=== PATIENT | male | born 1965 | race Caucasian/White ===

== ENCOUNTER 2019-07-24 10:35 | Inpatient (IN) | payer MEDICAID ==
[2019-07-24] MEDS ORDERED: Acetaminophen 325 MG Tab PO PRN (15:13)
[2019-07-24] MEDS ORDERED: Albuterol 6.7 GM Inhaler INH PRN (15:16)
--- NOTE | 2019-07-24 15:31 | PCM.HP ---
H&P History of Present Illness - General Date of Service: 07/24/19 Admit Problem/Dx: Admission Diagnosis/Problem Admission Diagnosis/Problem Weakness - History of Present Illness Initial Comments - Free Text/Narative: Judd Kim, 53 y.o. male with medical history significant for hypertension, COPD, atrial fibrillation, alcohol use disorder, and history of tobacco use who was admitted for acute COPD exacerbation and was found to have acute systolic heart failure. Covid-19 was ruled out. He was started CIWA protocol for alcohol withdrawl. his ECHO showed EF 25 to 30%. Patient was also in A. fib with RVR. He was started on amiodarone. Patient was also started on Eliquis. Cardiology was consulted. Patient underwent coronary angiogram. There was no significant coronary artery disease. patient was started on HF regimen ( metoprolol, lisinopril and lasix). patient was deconditioned therefore he was transferred to swing bed for further care. on interview, he reported dyspnea on exertion. no other complaints. Neck Pain Score (Numeric/FACES): 3 - Related Data Allergies/Adverse Reactions: Allergies Allergy/AdvReac Type Severity Reaction Status Date / Time cat dander Allergy Cough Verified 07/24/19 13:23 mold Allergy Sneezing Verified 07/24/19 13:24 Home Medications: Home Meds ALPRAZolam [Xanax] 0.25 mg PO TID PRN 07/24/19 [History] Albuterol [Ventolin HFA] 2 puff INH Q4H PRN 07/24/19 [History] Amiodarone [Cordarone] 200 mg PO BID 07/24/19 [History] Apixaban [Eliquis] 5 mg PO BID 07/24/19 [History] Cyclobenzaprine [Flexeril] 10 mg PO BEDTIME PRN 07/24/19 [History] Fluticasone/Salmeterol [Advair 500-50] 1 puff INH BID 07/24/19 [History] Folic Acid 1 mg PO DAILY 07/24/19 [History] Furosemide [Lasix] 20 mg PO DAILY 07/24/19 [History] Ibuprofen 600 mg PO Q8H PRN 07/24/19 [History] Ipratropium/Albuterol Sulfate [Iprat-Albut 0.5-3(2.5) MG/3 ML] 3 ml IH Q4HRRT PRN 07/24/19 [History] Metoprolol Succinate [Toprol Xl] 100 mg PO DAILY 07/24/19 [History] Multivit,Stress Formula/Zinc [Stress B with Zinc Tablet] 1 each PO DAILY [History] Nicotine [Habitrol] 14 mg TOP DAILY 07/24/19 [History] Potassium Chloride 40 meq PO DAILY 07/24/19 [History] Thiamine [Vitamin B-1] 100 mg PO DAILY 07/24/19 [History] Triamcinolone Acetonide [Triamcinolone Acetonide 0.1% Crm] 1 applic TOP BID PRN MDD up to one week when needed 07/24/19 [History] Past Medical History Cardiovascular History: Reports: Afib, CAD, Cardiomyopathy, Heart Failure, Hypertension Respiratory History: Reports: COPD Musculoskeletal History: Reports: Arthritis, Back Pain, Chronic, Neck Pain, Chronic Other Musculoskeletal History: Fractured two vertabrae, bulging disks Neurological History: Reports: Concussion, TIA Psychiatric History: Reports: Anxiety, Panic Attack Dermatologic History: Reports: Other (See Below) Other Dermatologic History: dry skin - Infectious Disease History Infectious Disease History: Reports: Chicken Pox, Influenza - Past Surgical History Cardiovascular Surgical History: Reports: None Respiratory Surgical History: Reports: None GI Surgical History: Reports: Cholecystectomy Social & Family History - Family History Family Medical History: Noncontributory - Tobacco Use Smoking Status *Q: Current Every Day Smoker Years of Tobacco use: 40 Packs/Tins Daily: 0.5 Second Hand Smoke Exposure: Yes - Caffeine Use Caffeine Use: Reports: Coffee, Soda - Alcohol Use Days Per Week of Alcohol Use: 7 Number of Drinks Per Day: 15 Total Drinks Per Week: 105 Date of Last Drink: 07/09/19 - Recreational Drug Use Recreational Drug Use: No H&P Review of Systems - Review of Systems: Review Of Systems: Comprehensive ROS is negative, except as noted in HPI. Exam - Exam Exam: See Below - Vital Signs Vital Signs: Last Vital Signs Temp 36.7 C 07/24/19 13:30 Pulse 98 07/24/19 13:30 Resp 20 07/24/19 13:30 BP 90/61 07/24/19 13:30 Pulse Ox 97 07/24/19 13:30 Weight: 71.758 kg - Exam General: Alert, Oriented HEENT: Conjunctiva Clear, Other Lungs: Clear to Auscultation, Normal Respiratory Effort Cardiovascular: Regular Rate, Regular Rhythm GI/Abdominal Exam: Normal Bowel Sounds, Soft, Non-Tender, No Distention Extremities: Normal Inspection, No Pedal Edema Skin: Warm, Dry, Intact Psychiatric: Alert, Normal Affect, Normal Mood Problem List Initiated/Reviewed/Updated: Yes Orders Last 24hrs: Active Orders 24 hr Category Date Time Status Patient Status [ADT] Routine ADT 07/24/19 15:13 Ordered Oxygen Therapy [RC] PRN Care 07/24/19 15:13 Ordered Up With Assistance [RC] ASDIRECTED Care 07/24/19 15:13 Ordered VTE/DVT Education [RC] PER UNIT ROUTINE Care 07/24/19 15:13 Ordered Vital Signs [RC] QSHIFT Care 07/24/19 15:13 Ordered OT Evaluation and Treatment [CONS] Routine Cons 07/24/19 15:13 Ordered PT Evaluation and Treatment [CONS] Routine Cons 07/24/19 15:13 Ordered 2 Gram Sodium Diet [DIET] Diet 07/24/19 Dinner Ordered BASIC METABOLIC PANEL,BMP [CHEM] AM Lab 07/25/19 05:11 Ordered CBC WITH AUTO DIFF [HEME] AM Lab 07/25/19 05:11 Ordered ALPRAZolam [Xanax] Med 07/24/19 15:16 Ordered 0.25 mg PO TID PRN Acetaminophen [Tylenol] Med 07/24/19 15:13 Ordered 650 mg PO Q4H PRN Albuterol [Proventil HFA] Med 07/24/19 15:16 Ordered 2 puff INH Q4H PRN Albuterol/Ipratropium [DuoNeb 3.0-0.5 MG/3 ML] Med 07/24/19 15:16 Ordered 3 ml INH Q4HRRT PRN Amiodarone [Cordarone] Med 07/24/19 21:00 Ordered 200 mg PO BID Apixaban [Eliquis] Med 07/24/19 21:00 Ordered 5 mg PO BID Cyclobenzaprine [Flexeril] Med 07/24/19 15:16 Ordered 10 mg PO BEDTIME PRN Fluticasone/Salmeterol Med 07/24/19 21:00 Ordered 1 puff INH BID Folic Acid Med 07/25/19 09:00 Ordered 1 mg PO DAILY Furosemide [Lasix] Med 07/25/19 09:00 Ordered 20 mg PO DAILY Metoprolol Succinate [Toprol Xl] Med 07/25/19 09:00 Ordered 100 mg PO DAILY Nicotine [Habitrol] Med 07/25/19 09:00 Ordered 14 mg TOP DAILY Potassium Chloride [Potassium Chloride] Med 07/25/19 09:00 Ordered 40 meq PO DAILY Thiamine [Vitamin B-1] Med 07/25/19 09:00 Ordered 100 mg PO DAILY Resuscitation Status Routine Resus Stat 07/24/19 15:13 Ordered Medication Orders Acetaminophen (Tylenol) 650 mg PO Q4H PRN PRN Reason: Pain (Mild 1-3)/fever Assessment/Plan Comment:: #deconditioning -PT/OT #COPD -continue inhalers #Chronic systolic heart failure Patient with severe LV dysfunction with EF of 25 to 30% due to alcohol abuse Continue Lasix, metoprolol, and amnio lisinopril 5 mg, will need to also add spironolactone if tolerated Continue apixaban #Atrial fibrillation -currently on amiodarone 200 mg BID -will consider decreasing to 200 mg daily -continue apixaban #Alcohol dependence continue vitamins -patient said that he quit drinking #DVT prophylaxis -apixaban
[2019-07-24] MEDS: Albuterol/Ipratropium 3.0-0.5 MG/3 ML Neb Soln INH PRN (16:49)
[2019-07-24] MEDS: Formoterol/Mometasone 200-5 MCG 8.8 GM Inhaler IH SCH (18:05)
[2019-07-24] MEDS ORDERED: Aloe Vera/Sodium Chloride Gel 14.1 GM Tube NAS PRN (19:26)
[2019-07-24] MEDS ORDERED: Cyclobenzaprine 10 MG Tab PO PRN (20:00)
[2019-07-24] MEDS: Apixaban 5 MG Tab PO SCH (20:57)
[2019-07-24] MEDS: ALPRAZolam 0.25 MG Tab PO PRN (20:57)
[2019-07-24] MEDS: Amiodarone 200 MG Tab PO SCH (20:57)
[2019-07-25 06:38] LABS: ANION GAP 16.5 mEq/L (7-13); CHLORIDE,CL 100 mmol/L (98-107); SODIUM,NA 137 mmol/L (136-145)
[2019-07-25] MEDS: Formoterol/Mometasone 200-5 MCG 8.8 GM Inhaler IH SCH ×2 (08:25→18:15)
[2019-07-25] MEDS: Nicotine 14 MG/24 Hr Patch TOP SCH (08:26)
[2019-07-25] MEDS: Apixaban 5 MG Tab PO SCH ×2 (08:26→21:03)
[2019-07-25] MEDS: Amiodarone 200 MG Tab PO SCH ×2 (08:26→21:03)
[2019-07-25] MEDS: Folic Acid 1 MG Tab PO SCH (08:26)
[2019-07-25] MEDS: Potassium Chloride 10 MEQ Tab.ER PO SCH (08:27)
[2019-07-25] MEDS: Metoprolol Succinate 50 MG Tab.ER PO SCH (08:28)
[2019-07-25] MEDS: Furosemide 20 MG Tab PO SCH (08:28)
[2019-07-25] MEDS: Thiamine 100 MG Tab PO SCH (08:29)
[2019-07-25] MEDS ORDERED: Lisinopril 5 MG Tab PO SCH (09:00)
[2019-07-25] MEDS: Lisinopril 5 MG Tab PO SCH (10:21)
[2019-07-25] MEDS: Albuterol/Ipratropium 3.0-0.5 MG/3 ML Neb Soln INH PRN (11:27)
[2019-07-25] MEDS: ALPRAZolam 0.25 MG Tab PO PRN ×2 (12:26→21:20)
[2019-07-26] MEDS: Furosemide 20 MG Tab PO SCH (09:17)
[2019-07-26] MEDS: Formoterol/Mometasone 200-5 MCG 8.8 GM Inhaler IH SCH ×2 (09:17→17:59)
[2019-07-26] MEDS: Potassium Chloride 10 MEQ Tab.ER PO SCH (09:17)
[2019-07-26] MEDS: Thiamine 100 MG Tab PO SCH (09:17)
[2019-07-26] MEDS: Amiodarone 200 MG Tab PO SCH ×2 (09:17→21:05)
[2019-07-26] MEDS: Apixaban 5 MG Tab PO SCH ×2 (09:17→21:05)
[2019-07-26] MEDS: Folic Acid 1 MG Tab PO SCH (09:18)
[2019-07-26] MEDS: ALPRAZolam 0.25 MG Tab PO PRN ×2 (09:18→21:05)
[2019-07-26] MEDS: Metoprolol Succinate 50 MG Tab.ER PO SCH (09:18)
[2019-07-26] MEDS: Lisinopril 5 MG Tab PO SCH (09:18)
[2019-07-26] MEDS: Nicotine 14 MG/24 Hr Patch TOP SCH (09:18)
[2019-07-27] MEDS: Apixaban 5 MG Tab PO SCH ×2 (08:41→20:48)
[2019-07-27] MEDS: Nicotine 14 MG/24 Hr Patch TOP SCH (08:41)
[2019-07-27] MEDS: Furosemide 20 MG Tab PO SCH (08:41)
[2019-07-27] MEDS: Metoprolol Succinate 50 MG Tab.ER PO SCH (08:42)
[2019-07-27] MEDS: Folic Acid 1 MG Tab PO SCH (08:42)
[2019-07-27] MEDS: Lisinopril 5 MG Tab PO SCH (08:42)
[2019-07-27] MEDS: Thiamine 100 MG Tab PO SCH (08:42)
[2019-07-27] MEDS: Potassium Chloride 10 MEQ Tab.ER PO SCH (08:42)
[2019-07-27] MEDS: Amiodarone 200 MG Tab PO SCH ×2 (08:43→20:48)
[2019-07-27] MEDS: Formoterol/Mometasone 200-5 MCG 8.8 GM Inhaler IH SCH ×2 (08:45→18:12)
[2019-07-27] MEDS: ALPRAZolam 0.25 MG Tab PO PRN ×2 (09:07→20:48)
[2019-07-28] MEDS: Formoterol/Mometasone 200-5 MCG 8.8 GM Inhaler IH SCH ×2 (08:49→18:05)
[2019-07-28] MEDS: Nicotine 14 MG/24 Hr Patch TOP SCH (08:49)
[2019-07-28] MEDS: Metoprolol Succinate 50 MG Tab.ER PO SCH (08:51)
[2019-07-28] MEDS: Amiodarone 200 MG Tab PO SCH ×2 (08:52→20:44)
[2019-07-28] MEDS: Thiamine 100 MG Tab PO SCH (08:52)
[2019-07-28] MEDS: Potassium Chloride 10 MEQ Tab.ER PO SCH (08:52)
[2019-07-28] MEDS: Furosemide 20 MG Tab PO SCH (08:52)
[2019-07-28] MEDS: Lisinopril 5 MG Tab PO SCH (08:52)
[2019-07-28] MEDS: ALPRAZolam 0.25 MG Tab PO PRN ×2 (08:53→20:45)
[2019-07-28] MEDS: Folic Acid 1 MG Tab PO SCH (08:53)
[2019-07-28] MEDS: Apixaban 5 MG Tab PO SCH ×2 (08:53→20:37)
[2019-07-28] MEDS: Albuterol/Ipratropium 3.0-0.5 MG/3 ML Neb Soln INH PRN (23:16)
[2019-07-29] MEDS: Formoterol/Mometasone 200-5 MCG 8.8 GM Inhaler IH SCH ×2 (08:07→17:57)
[2019-07-29] MEDS: Folic Acid 1 MG Tab PO SCH (08:09)
[2019-07-29] MEDS: Apixaban 5 MG Tab PO SCH ×2 (08:09→21:37)
[2019-07-29] MEDS: Amiodarone 200 MG Tab PO SCH ×2 (08:09→22:21)
[2019-07-29] MEDS: Nicotine 14 MG/24 Hr Patch TOP SCH (08:10)
[2019-07-29] MEDS: Furosemide 20 MG Tab PO SCH (08:11)
[2019-07-29] MEDS: Potassium Chloride 10 MEQ Tab.ER PO SCH (08:11)
[2019-07-29] MEDS: Lisinopril 5 MG Tab PO SCH (08:12)
[2019-07-29] MEDS: Metoprolol Succinate 50 MG Tab.ER PO SCH (08:12)
[2019-07-29] MEDS: Thiamine 100 MG Tab PO SCH (08:14)
[2019-07-29] MEDS: ALPRAZolam 0.25 MG Tab PO PRN (21:36)
[2019-07-29] MEDS: guaiFENesin 100 MG/5 ML Soln 5 ML UD Cup PO PRN (21:37)
[2019-07-30 06:31] LABS: ANION GAP 17.1 mEq/L (7-13); CHLORIDE,CL 101 mmol/L (98-107); SODIUM,NA 138 mmol/L (136-145)
[2019-07-30] MEDS: Formoterol/Mometasone 200-5 MCG 8.8 GM Inhaler IH SCH ×2 (08:48→19:45)
[2019-07-30] MEDS: Amiodarone 200 MG Tab PO SCH (08:49)
[2019-07-30] MEDS: Apixaban 5 MG Tab PO SCH ×2 (08:50→20:49)
[2019-07-30] MEDS: Nicotine 14 MG/24 Hr Patch TOP SCH (08:50)
[2019-07-30] MEDS: Folic Acid 1 MG Tab PO SCH (08:50)
[2019-07-30] MEDS: Potassium Chloride 10 MEQ Tab.ER PO SCH (08:51)
[2019-07-30] MEDS: Lisinopril 5 MG Tab PO SCH (08:52)
[2019-07-30] MEDS: Metoprolol Succinate 50 MG Tab.ER PO SCH (08:52)
[2019-07-30] MEDS: Furosemide 20 MG Tab PO SCH (08:52)
[2019-07-30] MEDS: Thiamine 100 MG Tab PO SCH (08:53)
--- NOTE | 2019-07-30 11:22 | PCM.PN ---
- General Info Date of Service: 07/30/19 Subjective Update: Feeling well, minimal shortness of breath with activity. Has been able to walk around. Eating better. Functional Status: Reports: Pain Controlled, Tolerating Diet - Review of Systems General: Denies: Fever, Weakness Pulmonary: Denies: Shortness of Breath Cardiovascular: Denies: Chest Pain Genitourinary: Denies: Dysuria - Patient Data Vitals - Most Recent: Last Vital Signs Temp 97.6 F 07/30/19 08:26 Pulse 83 07/30/19 08:52 Resp 20 07/30/19 08:26 BP 108/71 07/30/19 08:52 Pulse Ox 98 07/30/19 08:26 Weight - Most Recent: 158 lb 3.2 oz I&O - Last 24 Hours: Intake & Output 07/29/19 07/30/19 07/30/19 22:59 06:59 14:59 Intake Total 300 480 Balance 300 480 Lab Results Last 24 Hours: Laboratory Results - last 24 hr 07/30/19 07/30/19 Range/Units 06:05 06:05 WBC 8.7 (5.0-10.0) 10^3/uL RBC 3.68 L (4.6-6.2) 10^6/uL Hgb 13.7 L (14.0-18.0) g/dL Hct 38.7 L (40.0-54.0) % MCV 105.2 H (80-100) fL MCH 37.2 H (27.0-34.0) pg MCHC 35.4 H (33.0-35.0) g/dL Plt Count 390 D (150-450) 10^3/uL Neut % (Auto) 65.7 (42.2-75.2) % Lymph % (Auto) 21.5 (20.5-50.1) % [place] % (Auto) 9.8 H (2-8) % Eos % (Auto) 2.2 (1.0-3.0) % Baso % (Auto) 0.8 (0.0-1.0) % Sodium 138 (136-145) mmol/L Potassium 4.1 (3.5-5.1) mmol/L Chloride 101 (98-107) mmol/L Carbon Dioxide 24 (21-32) mmol/L Anion Gap 17.1 H (7-13) mEq/L BUN 16 (7-18) mg/dL Creatinine 0.87 (0.70-1.30) mg/dL Est Cr Clr Drug Dosing 98.52 mL/min Estimated GFR (MDRD) > 60 Glucose 99 (74-99) mg/dL Calcium 8.8 (8.5-10.1) mg/dL Med Orders - Current: Current Medications Acetaminophen (Tylenol) 650 mg PO Q4H PRN PRN Reason: Pain (Mild 1-3)/fever Last Admin: 07/24/19 20:55 Dose: 650 mg Albuterol (Proventil Hfa) 0 gm INH Q4H PRN PRN Reason: Wheezing Albuterol/Ipratropium (Duoneb 3.0-0.5 Mg/3 Ml) 3 ml INH Q4HRRT PRN PRN Reason: Shortness of Breath Last Admin: 07/28/19 23:16 Dose: 3 ml Alprazolam (Xanax) 0.25 mg PO TID PRN PRN Reason: Anxiety Last Admin: 07/29/19 21:36 Dose: 0.25 mg Amiodarone HCl (Cordarone) 200 mg PO BID [facility] Last Admin: 07/30/19 08:49 Dose: 200 mg Ammonium Lactate (Amlactin 12% Lotion) 0 gm TOP BID [facility] Last Admin: 07/30/19 08:48 Dose: 1 dose Apixaban (Eliquis) 5 mg PO BID [facility] Last Admin: 07/30/19 08:50 Dose: 5 mg Cyclobenzaprine HCl (Flexeril) 10 mg PO BEDTIME PRN PRN Reason: muscle spasms Last Admin: 07/24/19 20:58 Dose: 10 mg Folic Acid (Folic Acid) 1 mg PO DAILY [facility] Last Admin: 07/30/19 08:50 Dose: 1 mg Furosemide (Lasix) 20 mg PO DAILY [facility] Last Admin: 07/30/19 08:52 Dose: 20 mg Guaifenesin (Robitussin) 100 mg PO Q6H PRN PRN Reason: Cough Last Admin: 07/29/19 21:37 Dose: 100 mg Lisinopril (Prinivil) 5 mg PO DAILY [facility] Last Admin: 07/30/19 08:52 Dose: 5 mg Metoprolol Succinate (Toprol Xl) 100 mg PO DAILY [facility] Last Admin: 07/30/19 08:52 Dose: 100 mg Miscellaneous Information (Check Patch) 1 ea TRDERM BEDTIME [facility] Last Admin: 07/29/19 21:39 Dose: Not Given Mometasone Furoate/Formoterol Fumar (Dulera 200-5 Mcg) 1 puff IH BIDRT [facility] Last Admin: 07/30/19 08:48 Dose: 1 puff Nicotine (Habitrol) 14 mg TOP DAILY [facility] Last Admin: 07/30/19 08:50 Dose: 14 mg Potassium Chloride (Klor-Con 10) 40 meq PO DAILY [facility] Last Admin: 07/30/19 08:51 Dose: 40 meq Sodium Chloride ([place] Saline Nasal Gel) 0 gm CARMENCITA Q2H PRN PRN Reason: Dryness Thiamine HCl (Vitamin B-1) 100 mg PO DAILY [facility] Last Admin: 07/30/19 08:53 Dose: 100 mg Discontinued Medications Lisinopril (Prinivil) 5 mg PO DAILY [facility] Last Admin: 07/25/19 10:32 Dose: Not Given - Exam Quality Assessment: No: Supplemental Oxygen General: Alert, Oriented Lungs: Clear to Auscultation, Normal Respiratory Effort. No: Wheezing Cardiovascular: Regular Rate, Regular Rhythm GI/Abdominal Exam: Normal Bowel Sounds, Soft, Non-Tender Extremities: No Pedal Edema Sepsis Event Note - Evaluation Sepsis Screening Result: No Definite Risk - Focused Exam Vital Signs: Vital Signs Temp Pulse Pulse Resp BP BP Pulse Ox 07/30/19 08:52 83 108/71 07/30/19 08:26 97.6 F 83 20 108/71 98 Date Exam was Performed: 07/30/19 Time Exam was Performed: 11:19 - Problem List & Annotations (1) COPD (chronic obstructive pulmonary disease) SNOMED Code(s): 91850767 Code(s): J44.9 - CHRONIC OBSTRUCTIVE PULMONARY DISEASE, UNSPECIFIED Status : Acute Current Visit: Yes (2) Chronic systolic (congestive) heart failure SNOMED Code(s): 841320552, 036885275 Code(s): I50.22 - CHRONIC SYSTOLIC (CONGESTIVE) HEART FAILURE Status: Acute Current Visit: Yes (3) Weakness SNOMED Code(s): 39512700 Code(s): R53.1 - WEAKNESS Status: Acute Current Visit: Yes - Problem List Review Problem List Initiated/Reviewed/Updated: Yes - Plan Plan:: #deconditioning -Much improved with PT/OT #COPD Controlled -continue inhalers #Chronic systolic heart failure Patient with severe LV dysfunction with EF of 25 to 30% due to alcohol abuse Continue Lasix, metoprolol, and amiodarone lisinopril 5 mg, add low-dose spironolactone and titrate up as tolerated Continue apixaban #Atrial fibrillation -currently on amiodarone 200 mg BID -decreas to 200 mg daily -continue apixaban #Alcohol dependence continue vitamins -patient said that he quit alcohol use #DVT prophylaxis -apixaban
[2019-07-30] MEDS: ALPRAZolam 0.25 MG Tab PO PRN (20:49)
[2019-07-30] MEDS: guaiFENesin 100 MG/5 ML Soln 5 ML UD Cup PO PRN (20:49)
[2019-07-31] MEDS: Lisinopril 5 MG Tab PO SCH (08:30)
[2019-07-31] MEDS: Folic Acid 1 MG Tab PO SCH (08:30)
[2019-07-31] MEDS: Metoprolol Succinate 50 MG Tab.ER PO SCH (08:31)
[2019-07-31] MEDS: Thiamine 100 MG Tab PO SCH (08:31)
[2019-07-31] MEDS: Apixaban 5 MG Tab PO SCH (08:31)
[2019-07-31] MEDS: Nicotine 14 MG/24 Hr Patch TOP SCH (08:32)
[2019-07-31] MEDS: Furosemide 20 MG Tab PO SCH (08:34)
[2019-07-31] MEDS: Formoterol/Mometasone 200-5 MCG 8.8 GM Inhaler IH SCH (08:35)
[2019-07-31] MEDS ORDERED: Spironolactone 25 MG Tab PO SCH (09:00)
[2019-07-31] MEDS ORDERED: Amiodarone 200 MG Tab PO SCH (09:00)
--- NOTE | 2019-07-31 09:22 | PCM.DCSUM1 ---
Discharge Summary - Hospital Course Free Text/Narrative:: Admitted with shortness of breath to [facility]. He was treated for COPD exacerbation, severe systolic congestive heart failure. Subsequently was transferred to [facility] bed for weakness, deconditioning. #deconditioning -Much improved with PT/OT #COPD Controlled -continue inhalers #Chronic systolic heart failure Patient with severe LV dysfunction with EF of 25 to 30% due to alcohol abuse Continue Lasix, metoprolol, and amiodarone lisinopril 5 mg, added low-dose spironolactone and titrate up as tolerated Continue apixaban #Atrial fibrillation -currently on amiodarone 200 mg BID -decreased to 200 mg daily -continue apixaban #Alcohol dependence continue vitamins -patient said that he quit alcohol use - Discharge Data Discharge Date: 07/31/19 Discharge Disposition: Home, Self-Care 01 Condition: Good - Referral to Home Health Primary Care Physician: Marcela Garza NP - Discharge Diagnosis/Problem(s) (1) COPD (chronic obstructive pulmonary disease) SNOMED Code(s): 96770396 ICD Code: J44.9 - CHRONIC OBSTRUCTIVE PULMONARY DISEASE, UNSPECIFIED Status : Acute Current Visit: Yes (2) Chronic systolic (congestive) heart failure SNOMED Code(s): 372783926, 944473695 ICD Code: I50.22 - CHRONIC SYSTOLIC (CONGESTIVE) HEART FAILURE Status: Acute Current Visit: Yes (3) Weakness SNOMED Code(s): 89587664 ICD Code: R53.1 - WEAKNESS Status: Acute Current Visit: Yes - Patient Summary/Data Consults: Consultations 07/24/19 15:13 OT Evaluation and Treatment [CONS] Routine PT Evaluation and Treatment [CONS] Routine - Patient Instructions Diet: Heart Healthy Diet Activity: As Tolerated - Discharge Plan *PRESCRIPTION DRUG MONITORING PROGRAM REVIEWED*: Not Applicable *COPY OF PRESCRIPTION DRUG MONITORING REPORT IN PATIENT LIZ: Not Applicable Prescriptions/Med Rec: Albuterol [Ventolin HFA] 2 puff INH Q4H PRN #1 inhaler PRN Reason: Wheezing Amiodarone [Cordarone] 200 mg PO DAILY #30 tablet Apixaban [Eliquis] 5 mg PO BID #30 tablet Fluticasone/Salmeterol [Advair 500-50] 1 puff INH BID #1 diskus Lisinopril [Zestril] 5 mg PO DAILY #30 tablet Metoprolol Succinate [Toprol Xl] 100 mg PO DAILY #30 tab.er.24h Spironolactone [Aldactone] 25 mg PO DAILY #30 tablet Home Medications: Home Meds Folic Acid 1 mg PO DAILY 07/24/19 [History] Furosemide [Lasix] 20 mg PO DAILY 07/24/19 [History] Multivit,Stress Formula/Zinc [Stress B with Zinc Tablet] 1 each PO DAILY [History] Albuterol [Ventolin HFA] 2 puff INH Q4H PRN #1 inhaler 07/31/19 [Rx] Amiodarone [Cordarone] 200 mg PO DAILY #30 tablet 07/31/19 [Rx] Apixaban [Eliquis] 5 mg PO BID #30 tablet 07/31/19 [Rx] Fluticasone/Salmeterol [Advair 500-50] 1 puff INH BID #1 diskus 07/31/19 [Rx] Lisinopril [Zestril] 5 mg PO DAILY #30 tablet 07/31/19 [Rx] Metoprolol Succinate [Toprol Xl] 100 mg PO DAILY #30 tab.er.24h 07/31/19 [Rx] Spironolactone [Aldactone] 25 mg PO DAILY #30 tablet 07/31/19 [Rx] Oxygen Therapy Mode: Room Air - Discharge Summary/Plan Comment DC Time >30 min.: No - General Info Date of Service: 07/31/19 - Review of Systems General: Denies: Fever, Weakness Pulmonary: Denies: Shortness of Breath Cardiovascular: Denies: Chest Pain, Edema - Patient Data Vitals - Most Recent: Last Vital Signs Temp 98.4 F 07/31/19 08:05 Pulse 86 07/31/19 08:31 Resp 20 07/31/19 08:05 BP 96/76 07/31/19 08:31 Pulse Ox 98 07/31/19 08:05 Weight - Most Recent: 158 lb 3.2 oz I&O - Last 24 hours: Intake & Output 07/30/19 07/31/19 07/31/19 22:59 06:59 14:59 Intake Total 360 Balance 360 Med Orders - Current: Current Medications Acetaminophen (Tylenol) 650 mg PO Q4H PRN PRN Reason: Pain (Mild 1-3)/fever Last Admin: 07/24/19 20:55 Dose: 650 mg Albuterol (Proventil Hfa) 0 gm INH Q4H PRN PRN Reason: Wheezing Albuterol/Ipratropium (Duoneb 3.0-0.5 Mg/3 Ml) 3 ml INH Q4HRRT PRN PRN Reason: Shortness of Breath Last Admin: 07/28/19 23:16 Dose: 3 ml Alprazolam (Xanax) 0.25 mg PO TID PRN PRN Reason: Anxiety Last Admin: 07/30/19 20:49 Dose: 0.25 mg Amiodarone HCl (Cordarone) 200 mg PO DAILY [facility] Last Admin: 07/31/19 08:31 Dose: 200 mg Ammonium Lactate (Amlactin 12% Lotion) 0 gm TOP BID [facility] Last Admin: 07/31/19 08:35 Dose: 1 applic Apixaban (Eliquis) 5 mg PO BID [facility] Last Admin: 07/31/19 08:31 Dose: 5 mg Cyclobenzaprine HCl (Flexeril) 10 mg PO BEDTIME PRN PRN Reason: muscle spasms Last Admin: 07/24/19 20:58 Dose: 10 mg Folic Acid (Folic Acid) 1 mg PO DAILY [facility] Last Admin: 07/31/19 08:30 Dose: 1 mg Furosemide (Lasix) 20 mg PO DAILY [facility] Last Admin: 07/31/19 08:34 Dose: Not Given Guaifenesin (Robitussin) 100 mg PO Q6H PRN PRN Reason: Cough Last Admin: 07/30/19 20:49 Dose: 100 mg Lisinopril (Prinivil) 5 mg PO DAILY [facility] Last Admin: 07/31/19 08:30 Dose: 5 mg Metoprolol Succinate (Toprol Xl) 100 mg PO DAILY [facility] Last Admin: 07/31/19 08:31 Dose: 100 mg Miscellaneous Information (Check Patch) 1 ea TRDERM BEDTIME [facility] Last Admin: 07/30/19 20:50 Dose: Not Given Mometasone Furoate/Formoterol Fumar (Dulera 200-5 Mcg) 1 puff IH BIDRT [facility] Last Admin: 07/31/19 08:35 Dose: 1 puff Nicotine (Habitrol) 14 mg TOP DAILY [facility] Last Admin: 07/31/19 08:32 Dose: 14 mg Sodium Chloride ([place] Saline Nasal Gel) 0 gm CARMENCITA Q2H PRN PRN Reason: Dryness Spironolactone (Aldactone) 25 mg PO DAILY [facility] Last Admin: 07/31/19 08:31 Dose: 25 mg Thiamine HCl (Vitamin B-1) 100 mg PO DAILY [facility] Last Admin: 07/31/19 08:31 Dose: 100 mg Discontinued Medications Amiodarone HCl (Cordarone) 200 mg PO BID [facility] Last Admin: 07/30/19 08:49 Dose: 200 mg Lisinopril (Prinivil) 5 mg PO DAILY [facility] Last Admin: 07/25/19 10:32 Dose: Not Given Potassium Chloride (Klor-Con 10) 40 meq PO DAILY [facility] Last Admin: 07/30/19 08:51 Dose: 40 meq - Exam General: Reports: Alert, Oriented Neck: Reports: Supple Lungs: Reports: Clear to Auscultation, Normal Respiratory Effort Cardiovascular: Reports: Regular Rate, Regular Rhythm GI/Abdominal Exam: Normal Bowel Sounds, Soft, Non-Tender Extremities: No Pedal Edema
== END 2019-07-31 10:00 | disposition home or self-care (01) | DRG 948 ==
LOC: DL.MS 13:05
PROVIDERS: ADMIT Internal Medicine; ATTEND Internal Medicine
DX: R53.1 Weakness (principal); I50.22 Chronic systolic (congestive) heart failure; J44.9 Chronic obstructive pulmonary disease, unspecified; I48.91 Unspecified atrial fibrillation; I25.10 Atherosclerotic heart disease of native coronary artery without angina pectoris; I11.0 Hypertensive heart disease with heart failure; M54.2 Cervicalgia; G89.29 Other chronic pain; F41.0 Panic disorder [episodic paroxysmal anxiety]; F17.200 Nicotine dependence, unspecified, uncomplicated; F10.20 Alcohol dependence, uncomplicated; Z91.09 Other allergy status, other than to drugs and biological substances; Z79.899 Other long term (current) drug therapy; Z90.49 Acquired absence of other specified parts of digestive tract; Z28.82 Immunization not carried out because of caregiver refusal
CPT/HCPCS: 36415; 80048; 85025; 94640; 97110-GO; 97110-GP; 97116-GP; 97161-GP; 97165-GO; 97530-GO; A9270-GY; J7620-GY